=== PATIENT | male | born 1935 | race Two or more races ===

== ENCOUNTER 2023-09-17 10:28 | Emergency (ER) | payer OTHER ==
[~2023-09-17] VITALS: Ht 172.7 cm; Wt 77.0 kg
[2023-09-17 11:33] LABS: Hemoglobin 15.4 g/dL (13.5-17.5); Mean Corpuscular Hemoglobin 29.8 pg (28.0-32.0)
[2023-09-17 11:34] LABS: Hematocrit 47.7 % (41.0-53.0); Mean Corpuscular Hgb Conc. 32.3 g/dL (32.0-36.0); Mean Corpuscular Volume 92.5 fL (80.0-100.0); Red Blood Cells 5.16 10^6/uL (4.5-5.90); Red Cell Distribution Width 15.3 % (11.8-14.3)
[2023-09-17 11:41] LABS: Creatine Kinase IFCC 627 U/L (46-171)
[2023-09-17 11:44] LABS: Amphetamine Screen, Urine Neg (NEGATIVE)
[2023-09-17 11:46] LABS: Barbiturate Scree,Urine Neg (NEGATIVE); Benzodiazephine Screen, Urine Neg (NEGATIVE); Urine Bacteria NONE SEEN /hpf (None Seen); Urine Blood Negative /uL (Negative); Urine Clarity Clear (Clear); Urine Color Yellow (Yellow); Urine Mucus FEW (None Seen); Urine Protein, UAD TRACE (Negative); Urine Specific Gravity 1.023 (1.001-1.035); Urine Urobilinogen Normal (Negative); Urine WBC 3 /hpf (0 - 3); Urine pH 5.5 (5.0-8.0)
[2023-09-17 11:47] LABS: Cannabinoid Screen, Urine Neg (NEGATIVE); Cocaine Screen, Urine Neg (NEGATIVE); Opiate Scree,Urine Neg (NEGATIVE); Phencyclidine Screen, Urine Neg (NEGATIVE)
[2023-09-17 11:47] LABS: Alanine Aminotransferase 73 U/L (7-40); Albumin 4.7 g/dL (3.2-4.8); Alkaline Phosphatase 57 U/L (46-116); Anion Gap 18 (5-15); Aspartate Aminotransferase 62 U/L (13-40); Bilirubin, Total 1.6 mg/dL (0.2-1.0); Blood Alcohol < 3.0 mg/dL (<10); Blood Urea Nitrogen 35 mg/dL (9-23); Calcium 9.7 mg/dL (8.7-10.4); Carbon Dioxide 15 mmol/L (20-30); Chloride 106 mmol/L (98-107); Glucose 118 mg/dL (74-106); Magnesium 3.1 mg/dL (1.6-2.6); Potassium 5.4 mmol/L (3.5-5.1); Sodium 139 mmol/L (136-145)
[2023-09-17 11:48] LABS: Total Protein 7.1 g/dL (5.7-8.2)
[2023-09-17 11:49] LABS: White Blood Cell 31.5 10^3/uL (4.4-10.8)
[2023-09-17 11:51] LABS: Basophils % (manual) 0 (0.0-2.0); Blast Cells 0; Eosinophils % (manual) 0 (0-7); Metamyelocytes % 0; Myelocytes % 0; Promyelocytes % 0; Reactive Lymphocytes 0
[2023-09-17 11:52] LABS: INR 1.11 (0.9-1.15); Partial Thromboplastin Time 26.2 SEC (24.5-34.5); Prothrombin Time 11.6 sec (9.3-11.8)
[2023-09-17 12:14] LABS: Lactic Acid w/Reflex 8.6 mmol/L (0.4-2.0)
[2023-09-17 12:27] LABS: Band Neutrophils % (manual) 6; Lymphocytes % (manual) 2 (10.0-50.0); Monocytes % (manual) 9 (0-12)
[2023-09-17 12:28] LABS: Platelet Estimate Adequate; RBC Morphology Normal
[2023-09-17] MEDS ORDERED: VANCOMYCIN 1GM/250ML 250 ML IV ONE (13:00)
[2023-09-17] MEDS ORDERED: PIPERACILLIN-TAZO 4.5GM 100 ML IV ONE (13:00)
[2023-09-17] MEDS ORDERED: LACTATED RINGER'S 1,000 ML IV ONE (13:15)
[2023-09-17 13:53] VITALS: PULSE 98; RESP 20; O2SAT 95
[2023-09-17] MEDS ORDERED: SODIUM CHLORIDE 0.9% 1,000 ML IV ONE (14:00)
[2023-09-17 19:30] VITALS: PULSE 91; RESP 20; O2SAT 100
[2023-09-17 20:36] VITALS: BP 110/58; PULSE 88; RESP 18; TEMP 98.2; O2SAT 100
== END 2023-09-17 20:56 | disposition short-term general hospital (02) ==
LOC: EDBD 10:28 → ER 10:28
DX: R41.82 Altered mental status, unspecified (principal); A41.9 Sepsis, unspecified organism; E72.20 Disorder of urea cycle metabolism, unspecified; E87.20 Acidosis, unspecified; Z87.440 Personal history of urinary (tract) infections; Z79.899 Other long term (current) drug therapy; V43.52XA Car driver injured in collision with other type car in traffic accident, initial encounter; Y93.89 Activity, other specified; Y92.89 Other specified places as the place of occurrence of the external cause; Y99.8 Other external cause status
CPT/HCPCS: 36415; 70450; 71045; 71250; 72125; 74176; 74181; 80053; 80307; 80320; 80329; 81001; 82140; 82550; 82962; 83605; 83735; 84484; 85007; 85027; 85610; 85730; 87040; 93005; 96365; 96366; 96368; 99285; J2543; J3370; J7030